=== PATIENT | female | born 1980 | race Caucasian/White ===

== ENCOUNTER 2022-04-28 00:30 | Emergency (ER) | payer OTHER ==
[~2022-04-28] VITALS: Ht 160 cm; Wt 64.4 kg
[2022-04-28 00:36] VITALS: BP 136/79
--- NOTE | 2022-04-28 00:42 | NUR ---
PT AMB TO BED 11.
--- NOTE | 2022-04-28 01:11 | NUR ---
Dr. Huff at bedside assessing patient.
--- NOTE | 2022-04-28 01:39 | NUR ---
PT RETURNED FROM CT.
[2022-04-28] MEDS ORDERED: KETOROLAC 30 MG/ML VIAL IM ONE (02:10)
--- NOTE | 2022-04-28 02:20 | NUR ---
Patient resting in bed, A/Ox4, chest rise and fall symmetrical, no c/o pain at this time.
[2022-04-28 02:31] LABS: APPEARANCE,URINE SL CLOUDY (CLEAR); BILIRUBIN,URINE NEGATIVE (NEGATIVE); BLOOD, URINE 3+ (NEGATIVE); COLOR,URINE YELLOW (YELLOW); LEUKOCYTE ESTERASE ,URINE 2+ (NEGATIVE); NITRITE, URINE NEGATIVE (NEGATIVE); UGLUCOSE NEGATIVE (NEGATIVE)
[2022-04-28 02:43] LABS: RBC,URINE 0-5 /HPF (0-5); WBC,URINE 0-5 /HPF (0-5)
--- NOTE | 2022-04-28 03:35 | NUR ---
Patient resting in bed, A/Ox4, chest rise and fall symmetrical, no c/o pain at this time.
--- NOTE | 2022-04-28 04:10 | NUR ---
Patient resting in bed, A/Ox4, chest rise and fall symmetrical, no c/o pain at this time.
[2022-04-28] MEDS ORDERED: CIPR500T4 PO (04:31)
[2022-04-28 04:55] VITALS: BP 102/65
--- NOTE | 2022-04-28 04:56 | NUR ---
Patient discharged with v/s stable. Written and verbal after care instructions given and explained. Patient alert, oriented and verbalized understanding of instructions. Ambulatory with steady gait. All questions addressed prior to discharge. ID band removed. Patient advised to follow up with PMD. Rx of Ciprofloxacin given. Patient educated on indication of medication including possible reaction and side effects. Opportunity to ask questions provided and answered.
[2022-05-03] MEDS ORDERED: NITR100C7 PO (14:46)
--- NOTE | 2022-05-03 15:05 | NUR ---
LATE ENTRY. RECEIVED POSITIVE URINE CULTURE. FORM GIVEN TO . NEW PRESCRIPTION OF MACROBID SENT TO PHARMACY. BOTH AND I ATTEMPTED TO CONTACT PT, NO ANSWER. VOICEMAIL FULL UNABLE TO LEAVE MESSAGE. FORM PLACED IN BINDER.
== END 2022-04-28 04:56 | disposition home or self-care (01) ==
LOC: MED 00:30
DX: N39.0 Urinary tract infection, site not specified (principal); M54.50 Low back pain, unspecified
CPT/HCPCS: 74176; 81001; 81025; 87086; 96372; 99284; J1885